=== PATIENT | female | born 1985 | race Caucasian/White ===

== ENCOUNTER 2019-02-10 14:02 | Emergency (ER) | payer MEDICAID, SELFPAY ==
[2019-02-10 14:19] VITALS: BP 129/89; PULSE 62; RESP 16; TEMP 36.8; O2SAT 97; BMI 21.5
[2019-02-10 14:31] VITALS: BP 129/89; PULSE 62; RESP 16; TEMP 36.8; O2SAT 97; BMI 21.5
--- NOTE | 2019-02-10 14:51 | HMH.EDUTC ---
[facility] [place] Disposition Clinical Impression: Jaw pain, non-TMJ Disposition: Home, Self-Care Condition on Discharge: Good Instructions: DI for Mouth Pain Additional Instructions: Avoid activities like what triggered this event. Take the ibuprofen for pain. Apply warm wet compresses to the affected area on your jaw three or four times per day for the next couple of days. Return or follow up with your regular doctor if this is not getting better in 48 hours. GO TO THE ER FOR ANY WORSENING SYMPTOMS Prescriptions: Ibuprofen [Ibuprofen 600mg Tablet] 600 mg PO Q6HP PRN #30 tab PRN Reason: Mild Pain Referrals: Stacey Tian PA [Primary Care Provider] - Time of Disposition: 15:00 Medical Decision Making - Medical Records Medical records reviewed: Yes: I reviewed the patient's medical records. - Vikram Inquiry Pt receiving controlled substance: No Vikram was queried for this patient: No Vital Signs: 02/10/19 14:19 02/10/19 14:31 02/10/19 15:05 Temperature 98.3 F 98.3 F 98.3 F Temperature Source Oral Oral Oral Pulse Rate 62 Pulse Rate [Left Radial] 62 62 Respiratory Rate 16 16 16 Blood Pressure 129/89 Blood Pressure [Right Arm] 129/89 129/89 Blood Pressure Mean [Right Arm] 102 102 Blood Pressure Source Automatic Cuff Blood Pressure Source [Right Arm] Automatic Cuff Automatic Cuff Blood Pressure Position Sitting Blood Pressure Position [Right Arm] Sitting Sitting 02 Sat by Pulse Oximetry 97 97 Oxygen Delivery Method Room Air Room Air Room Air [facility] [place] HPI - General Stated complaint: injured jaw Time Seen by Provider: 02/10/19 14:51 Mode of Arrival: Family Vehicle Source of Information: Patient Limitations: No Limitations Description of Symptoms (Recalled from Triage Doc. by RN): Pt states she was blowing bubbles with her mouth on her baby belly when she heard a pop in her right jaw and states today that it is really painful. Hx of TMJ HEENT Symptoms (Recalled from RN notes): Yes Resp Symptoms (Recalled from RN notes): No Skin Symptoms (Recalled from RN notes): No MS Symptoms (Recalled from RN notes): No Functional Status (Recalled from RN notes): N/A - Related Data Home Medications Medication Instructions Recorded Confirmed Albuterol Sulfate [Albuterol HFA 1 - 2 puffs IH Q4-6H PRN 02/10/19 02/10/19 Inhaler] Biotin 5,000 mcg SL DAILY 02/10/19 02/10/19 Levothyroxine Sodium 75 mcg PO DAILY 02/10/19 02/10/19 [Levothyroxine 75mcg (0.075mg) Tab] Norethindrone 0.35 mg PO DAILY 02/10/19 02/10/19 Prenat Vit Comb.10/Iron/FA/Dha 1 each PO DAILY 02/10/19 02/10/19 [Vitafol-Ob+Dha Combo Pack] Previous Rx's Medication Instructions Recorded Ibuprofen [Ibuprofen 600mg 600 mg PO Q6HP PRN #30 tab 02/10/19 Tablet] Allergies Allergy/AdvReac Type Severity Reaction Status Date / Time codeine Allergy Verified 02/10/19 14:33 Sulfa (Sulfonamide Allergy Verified 02/10/19 14:33 Antibiotics) - Worker's Comp Is this a Worker's Comp case?: No [facility] History - Hepatitis A Screen Drug use history?: No High risk sexual behaviors?: No History of sexually transmitted infection?: No Currently employed?: No Childcare worker?: No Do you have indoor plumbing?: Yes Do you have electricity?: Yes Attestation statement:: This patient has been screened for Hepatitis A risk factors. I have reviewed the patient's past medical history: Yes - Social History Alcohol Intake: never Occupational Status: other - Psychiatric History Expresses thoughts of harming self/others: None Suicide Plan Description: No Plan ROS Obtained: Yes All systems reviewed & no additional complaints - Constitutional Constitutional: Denies chills, Denies fever(s) - Eyes Eyes: Denies change in vision - ENT Ears, Nose, Mouth, and Throat: Reports as per HPI - Cardiovascular Cardiovascular: Denies chest pain - Respiratory Respiratory: No chest congestion, No cough Ph
--- NOTE | 2019-02-10 14:59 | ED_ITS ---
[facility] [place] Dis[place] Clinical Impression: Jaw pain, non-TMJ Disposition: Home, Self-Care Condition on Discharge: Good Instructions: DI for Mouth Pain Additional Instructions: Avoid activities like what triggered this event. Take the ibuprofen for pain. Apply warm wet compresses to the affected area on your jaw three or four times per day for the next couple of days. Return or follow up with your regular doctor if this is not getting better in 48 hours. GO TO THE ER FOR ANY WORSENING SYMPTOMS Prescriptions: Ibuprofen [Ibuprofen 600mg Tablet] 600 mg PO Q6HP PRN #30 tab PRN Reason: Mild Pain Referrals: Stacey Tian PA [Primary Care Provider] - Time of Disposition: 15:00 Medical Decision Making - Medical Records Medical records reviewed: Yes: I reviewed the patient's medical records. - Vikram Inquiry Pt receiving controlled substance: No Vikram was queried for this patient: No Vital Signs: 02/10/19 14:19 02/10/19 14:31 02/10/19 15:05 Temperature 98.3 F 98.3 F 98.3 F Temperature Source Oral Oral Oral Pulse Rate 62 Pulse Rate [Left Radial] 62 62 Respiratory Rate 16 16 16 Blood Pressure 129/89 Blood Pressure [Right Arm] 129/89 129/89 Blood Pressure Mean [Right Arm] 102 102 Blood Pressure Source Automatic Cuff Blood Pressure Source [Right Arm] Automatic Cuff Automatic Cuff Blood Pressure Position Sitting Blood Pressure Position [Right Arm] Sitting Sitting 02 Sat by Pulse Oximetry 97 97 Oxygen Delivery Method Room Air Room Air Room Air [facility] [place] HPI - General Stated complaint: injured jaw Time Seen by Provider: 02/10/19 14:51 Mode of Arrival: Family Vehicle Source of Information: Patient Limitations: No Limitations Description of Symptoms (Recalled from Triage Doc. by RN): Pt states she was blowing bubbles with her mouth on her baby belly when she heard a pop in her right jaw and states today that it is really painful. Hx of TMJ HEENT Symptoms (Recalled from RN notes): Yes Resp Symptoms (Recalled from RN notes): No Skin Symptoms (Recalled from RN notes): No MS Symptoms (Recalled from RN notes): No Functional Status (Recalled from RN notes): N/A - Related Data Home Medications Medication Instructions Recorded Confirmed Albuterol Sulfate [Albuterol HFA 1 - 2 puffs IH Q4-6H PRN 02/10/19 02/10/19 Inhaler] Biotin 5,000 mcg SL DAILY 02/10/19 02/10/19 Levothyroxine Sodium 75 mcg PO DAILY 02/10/19 02/10/19 [Levothyroxine 75mcg (0.075mg) Tab] Norethindrone 0.35 mg PO DAILY 02/10/19 02/10/19 Prenat Vit Comb.10/Iron/FA/Dha 1 each PO DAILY 02/10/19 02/10/19 [Vitafol-Ob+Dha Combo Pack] Previous Rx's Medication Instructions Recorded Ibuprofen [Ibuprofen 600mg 600 mg PO Q6HP PRN #30 tab 02/10/19 Tablet] Allergies Allergy/AdvReac Type Severity Reaction Status Date / Time codeine Allergy Verified 02/10/19 14:33 Sulfa (Sulfonamide Allergy Verified 02/10/19 14:33 Antibiotics) - Worker's Comp Is this a Worker's Comp case?: No [facility] History - Hepatitis A Screen Drug use history?: No High risk sexual behaviors?: N
[2019-02-10 15:05] VITALS: BP 129/89; PULSE 62; RESP 16; TEMP 36.8; O2SAT 97
== END 2019-02-10 15:07 | disposition home or self-care (01) ==
LOC: ER 14:11 → UTC 14:21
PROVIDERS: Emergency Provider Nurse Practitioner Family; PCP Physician Assistant
DX: R68.84 Jaw pain (principal)
CPT/HCPCS: 99201

== ENCOUNTER → 2021-06-18 09:43 | Outpatient (CLI) | payer MEDICAID, SELFPAY ==
[2021-06-18 10:14] LABS: Basophils # 0.1 K/mm3 (0-0.2); Basophils % 0.9 % (0.1-2.0); Eosinophils # 0.2 K/mm3 (0.0-0.4); Eosinophils % 3.3 % (0.1-12.0); Hematocrit 43.5 % (37.0-47.0); Hemoglobin 14.2 g/dL (12.2-16.2); Lymphocytes # 2.6 K/mm3 (0.7-4.5); Lymphocytes % 34.8 % (10-50); Mean Corpuscular HGB Conc 32.6 g/dL (31.8-35.4); Mean Corpuscular Hemoglobin 29.2 pg (27.0-31.2); Mean Corpuscular Volume 89.8 fl (81-99); Mean Platelet Volume 8.1 fl (7.4-10.4); Monocytes # 0.5 K/mm3 (0.1-1.0); Monocytes % 7.3 % (1.7-9.3); Neutrophils % 53.7 % (37.0-80.0); Platelet Count 275 K/mm3 (142-424); Red Blood Count 4.84 M/mm3 (4.20-5.40); Red Cell Distribution Width 12.7 % (11.5-17.5); White Blood Count 7.4 K/mm3 (4.8-10.8)
[2021-06-18 11:49] LABS: HCG Qualitative, Serum Negative (Negative)
[2021-06-18 16:41] LABS: Chloride 105 mmol/L (98-107); Sodium 141 mmol/L (136-145)
[2021-06-18 16:42] LABS: Potassium 3.8 mmoL/L (3.5-5.1)
[2021-06-18 16:44] LABS: Blood Urea Nitrogen 11 mg/dl (7-17); Estimated Glomerular Filt Rate 96 ml/min (>60); GFR (African American) 117 ML/MIN (>60)
[2021-06-18 16:45] LABS: Anion Gap 13.8 mEq/L (5-15); Calcium 9.1 mg/dl (8.4-10.2); Carbon Dioxide 26 mmol/L (22.0-30.0); Glucose 99 mg/dl (74-100)
== END ==
PROVIDERS: Visit Provider Nurse Practitioner Obstetrics & Gynecology
DX: Z01.818 Encounter for other preprocedural examination (principal); Z11.52 Encounter for screening for COVID-19; Z30.09 Encounter for other general counseling and advice on contraception
CPT/HCPCS: 36415; 80048; 84703; 85025; U0003

== ENCOUNTER 2021-06-20 06:04 | Day surgery (SDC) | payer MEDICAID, SELFPAY ==
[2021-06-17 09:18] VITALS: BMI 25.8
[2021-06-20] VITALS (9 sets, daily range): BP systolic 104–141; BP diastolic 63–83; PULSE 49–68; RESP 18–25; TEMP 36.2–37.3; O2SAT 98–100
--- NOTE | 2021-06-20 07:03 | P.PN_ITS ---
[facility] Anesthesia Checklist - Patient Identification Patient Identification: Arm Band - Structural Data Admitted From: Home Planned Operative Procedure/s: Lap. salpingectomy Consent for Planned Operative Procedure(s) Verified: Yes - NPO Status Verified Time NPO: 00:00 - Additional verifications Anesthesia Reactions: No Hx Blood Transfusions: No Blood Transfusion Reaction: No - Cardiovascular Assessment Heart Sounds: Murmur - Airway Assessment C-Spine Mobility Assessed: Yes TMJ Mobility Assessed: Yes Dentition: Good Dentition - Neurological Assessment Level of Consciousness: Awake Hx Seizures: No Numbness or tingling in extremities: No - Anesthesia Plan Anesthesia Risk discussed: Yes Anesthesia Plan: Verified ASA Class: II Anesthesia Type: General [facility] History I have reviewed the patient's past medical history: Yes Medical History: Denies:: Cancer, Diabetes Mellitus Type 1, Diabetes Mellitus Type 2, Internal Pacemaker, MRSA, Seizures *Have you ever received a pneumonia vaccine?: No *Have you received a flu vaccine this season?: No Other Medical History: Reports: Hypothyroidism, Other. Denies: Blood Transfusion Reaction Anesthesia experience/problems:: None Other Surgeries: Yes: No Previous Surgery. No: Pacemaker Amputation: No Fractures: No - *Social History Last grade of school completed: High school graduate Smoking Status: Never smoker Alcohol Intake: never Substance Use Type: marijuana Last Used Substance: days (ago) *Occupational Status:: unemployed Housing: house Household Members: family *Travel in the last 8 weeks: None Family Hx:: Cancer, Diabetes, Thyroid Disorder
--- NOTE | 2021-06-20 08:14 | HMH.OPNOTE ---
Date of procedure: 06/20/21 Pre-op Diagnosis:: Desire for sterilization Post-op Diagnosis:: Desire for sterilization Procedure performed:: Laparoscopic bilateral salpingectomy Surgeon:: Suhas Moreno MD RODENT EXTERMINATOR:: Yamil Ho Anesthesia: ALYSHAA Estimated blood loss (mL): 25 Clinical Note:: She is a 35-year-old lady who expressed desire for sterilization. The risks and benefits of surgery as well as the irreversibility of bilateral salpingectomy were discussed with the patient prior to surgery. Operative findings:: She had an anteverted somewhat bulky uterus. The tubes and ovaries appeared normal. The pelvis appeared normal. The upper abdomen appeared normal. I did get a chance to visualize her appendix and it appeared normal as well. Operative note:: She was taken to the operating room where general anesthesia was found be adequate. She was prepped and draped in normal sterile fashion in the semilithotomy position. A weighted speculum was placed in the vagina and the anterior lip of the cervix was grasped with a tenaculum. I then inserted a Isabella uterine manipulator into the cervical os. The balloon was then insufflated. I changed gloves and injected 10 cc of 0.5% ropivacaine around her umbilicus and made a small incision within the umbilicus. I inserted a Veress needle into the abdominal cavity. The peritoneal cavity was then insufflated with carbon dioxide gas to a pressure of 20 mmHg. I then inserted a 5 millimeter trocar under direct vision. I injected through and through the pubic hairline, made a small incision here and inserted an 8 mm trocar under direct vision. I identified the inferior epigastric artery on the left side, went lateral to these and injected through and through. I then placed a 5 mm trocar here under direct vision. The pelvis and upper abdomen were then inspected and the findings were as previously dictated. I grasped the right tube at the cornua and using harmonic scalpel on coagulation mode I cut through the tube. I then grasped the distal tube and using harmonic scalpel cut along the mesosalpinx. The tube was removed through 8 mm trocar site. This was similarly performed on the patient's left side. There was a small amount of bleeding on the right side and I tried cauterizing the area but it was unsuccessful. I elected to place a number of small surgical clips close to the cornua. Once again hemostasis was assured. The pelvis was then rinsed with saline. I then injected 30 cc of 0.5% ropivacaine into the pelvis. After assuring hemostasis the gas was let out of the abdomen and hemostasis was once again assured. The abdomen was then reinsufflated. The secondary trochars were removed under direct vision. The gas was let out her abdomen. The primary trocar was then removed. The 8 mm trocar site was closed deeply with 2-0 Vicryl suture followed by subcuticular 4-0 Monocryl suture. The 5 mm trocar sites were closed with subcuticular 4-0 Monocryl. Sterile dressings were applied. The patient tolerated the procedure well and was taken to the recovery room in excellent condition. All sponge instrument and needle counts were correct. The estimated blood loss was less than 25 cc. Condition: stable Disposition: PACU Specimens:: Bilateral fallopian tubes Complications:: None
--- NOTE | 2021-06-20 08:22 | HMH.ANESI ---
[facility] Anesthesia Record Part I Intake, IV Amount: 750 Estimated blood loss (mL): 20 Urine output (mL): 0 Blood Pressure: 141/83 SaO2: 100 Pulse Rate: 54 Respiratory Rate: 25 Temperature: 99.2 F Patient is:: Drowsy, Oral/Nasal airway Stable to PACU at:: 08:21
--- NOTE | 2021-06-20 10:58 | SUR.PHASEI ---
0821-pt to pacu via stretcher having a Lap Tubal per . Report received from Bri TSAI & Colten CASH. Pt is sleeping comfortably with oral airway in place. 3 abdominal dressings noted. All C/D/I. Kelley pad in place. Warm blankets applied for comfort measures. Scopolomine patch noted behind right ear. VSS. 0830- Oral airway removed. Pt awake but sleepy. VSS. 0835-Pt given ice chips. Tolerated well. 0840- pt c/o burning in vaginal area and urge to void. Offered bed saucedo. Pt refused. VSS. 0851- pt taken to post op via stretcher. Report given to L.King TSAI. VSS.
--- NOTE | 2021-06-23 14:16 | P.PN_ITS ---
[facility] Anesthesia Record Part II Discharge Time: 08:51 Destination: Surgical Day Care (OP Surgery) PACU nurse assessment reviewed?: Yes Patient Condition:: Good Anesthesia Complications:: None Swallowing reflex intact?: Yes Cyanosis?: No Blood Pressure: 109/69 Pulse Rate: 68 Temperature: 98.2 F Mental Status: Alert & Oriented Pain level:: 0 Nausea and/or vomitting:: None Intake, IV Amount: 0
[2021-06-23 14:17] VITALS: BP 109/69; PULSE 68; TEMP 36.8
== END 2021-06-20 09:30 | disposition home or self-care (01) ==
LOC: OR 06:06
PROVIDERS: PCP Nurse Practitioner Obstetrics & Gynecology; Visit Provider Nurse Practitioner Obstetrics & Gynecology
PROC: (CPT 58661; principal; 2021-06-20 07:30)
DX: Z30.2 Encounter for sterilization (principal); Z88.2 Allergy status to sulfonamides; Z88.6 Allergy status to analgesic agent
CPT/HCPCS: 58661; 96374; J2405

== ENCOUNTER 2021-06-20 10:11 | Emergency (ER) | payer MEDICAID, SELFPAY ==
--- NOTE | 2021-06-20 10:10 | ECG_ITS ---
APPROVED REPORT Exam: Resting ECG HR:50 bpm ECG Measurements Heart Rate 50 AXES NJ 160 P 68 QRSd 90 QRS 78 QT 454 T 84 QTc 413 Conclusion Sinus bradycardia Otherwise normal ECG Electronically signed by : Jorge A Murillo MD 06/22/2021 16:10:47
[2021-06-20 10:12] VITALS: BP 119/69; PULSE 52; RESP 20; TEMP 36.7; O2SAT 100; BMI 25.8
--- NOTE | 2021-06-20 10:18 | HMH.EDGENADL ---
ED Disposition Clinical Impression: Surgical pneumoperitoneum Chest pain Qualifiers: Chest pain type: chest pain on breathing Qualified Code(s): R07.1 - Chest pain on breathing Disposition: Home, Self-Care Condition on Discharge: Good Additional Instructions: Take oxycodone that was prescribed for pain, take Zofran along with food to prevent nausea. Additional instructions for CHEST PAIN: See your physician as soon as possible for further evaluation. Return immediately if worsening chest pain, vomiting, shortness of breath, fever, coughing of blood. Prescriptions: Ondansetron [Zofran 4mg ODT] 4 mg PO TIDP PRN #10 tab PRN Reason: Nausea And Vomiting Transmission Status: Received by [id number] Referrals: Provider,Referral, MD [Primary Care Provider] - - Critical Care Critical Care Time: No Attestation: On , the high probability of a clinically significant, sudden or life threatening deterioration of the following system(s) required my full and direct attention, intervention and personal management. The time I documented below is in addition to time spent performing reported procedures but includes the following listed in this critical care notation. Medical Decision Making - Medical Records Medical records reviewed: Yes: I reviewed the patient's medical records. MR Comment: Reviewed tubal ligation operative report from today. - Vikram Inquiry Pt receiving controlled substance: Yes Vikram was queried for this patient: Yes Risks and benefits of using a controlled substance: were not discussed with pt by me Vital Signs: 06/20/21 10:12 06/20/21 10:30 06/20/21 10:40 Temperature 98.1 F Temperature Source Oral Pulse Rate 49 L 50 L Pulse Rate [Right Radial] 52 L Respiratory Rate 20 16 14 Blood Pressure 103/67 L 104/59 L Blood Pressure [Right Arm] 119/69 Blood Pressure Mean 79 74 Blood Pressure Mean [Right Arm] 85 Blood Pressure Source Blood Pressure Source [Right Arm] Automatic Cuff Blood Pressure Position Blood Pressure Position [Right Arm] Sitting 02 Sat by Pulse Oximetry 100 98 98 Oxygen Delivery Method Room Air Room Air Room Air 06/20/21 12:45 Temperature 98.1 F Temperature Source Oral Pulse Rate 46 L Pulse Rate [Right Radial] Respiratory Rate 16 Blood Pressure 104/61 L Blood Pressure [Right Arm] Blood Pressure Mean Blood Pressure Mean [Right Arm] Blood Pressure Source Automatic Cuff Blood Pressure Source [Right Arm] Blood Pressure Position Sitting Blood Pressure Position [Right Arm] 02 Sat by Pulse Oximetry Oxygen Delivery Method Room Air - Lab Data Lab Results 06/20/21 10:16: WBC 10.8 D, RBC 4.57, Hgb 13.4, Hct 41.0, MCV 89.7, MCH 29.4, MCHC 32.8, RDW 12.2, Plt Count 268, MPV 7.7, Neut % (Auto) 90.0 H, Lymph % (Auto) 7.5 L, [place] % (Auto) 1.9, Eos % (Auto) 0.5, Baso % (Auto) 0.2, Neut # (Auto) 9.7 H, Lymph # (Auto) 0.8, [place] # (Auto) 0.2, Eos # (Auto) 0.1, Baso # (Auto) 0.0, Total Counted 100, Neutrophils % (Manual) 84 H, Lymphocytes % (Manual) 12, Monocytes % (Manual) 3, Eosinophils % (Manual) 1, Platelet Estimate Normal, RBC Morphology Normal 06/20/21 10:16: Sodium 141, Potassium 4.2, Chloride 107, Carbon Dioxide 25, Anion Gap 13.2, BUN 11, Creatinine 0.60, Estimated Creat Clear 172, Estimated GFR 115, Est GFR ( Amer) 139, Glucose 120 H, Calcium 8.5, Total Bilirubin 0.2, Direct Bilirubin 0.2, Conjugated Bilirubin 0.0, Indirect Bilirubin 0.0, Unconjugated Bilirubin 0.0, AST 22, ALT 12, Alkaline Phosphatase 64, Total Protein 7.0, Albumin 4.1, Lipase 56 06/20/21 10:16: Troponin I < 0.01 Result diagrams: 06/20/21 10:16 06/20/21 10:16 Orders (Tests/Meds): ED MEDICATIONS Discontinued Medications Generic Name Dose Route Start Last Admin Trade Name Freq PRN Reason Stop Dose Admin Hydromorphone HCl 1 mg 06/20/21 10:26 06/20/21 10:32 Hydromorphone 2mg/Ml Syringe IV 06/20/21 10:27 1 mg ONCE ONE Administration Iopamidol
--- NOTE | 2021-06-20 10:26 | XR_ITS ---
PROCEDURE: XR CHEST PORTABLE CLINICAL HISTORY: chest pain COMPARISON: CR CXR2V XR chest 2V from 02/22/2019 FINDINGS: The cardiomediastinal silhouette and pulmonary vascularity are within normal limits. No lobar consolidation or collapse. There is a vague area of increased density in the right midlung laterally measuring 14 mm. This may very well be due to summation artifact from the overlying scapula. A sclerotic lesion of the scapula is a consideration as well. No acute bony abnormalities. IMPRESSION: No definite acute finding. 14 mm density right midlung laterally which could be due to summation artifact from the scapula versus a sclerotic scapular lesion or overlying pulmonary nodule. Upright PA and lateral chest may provide further evaluation clinically warranted Dictated by: Abran Clayton MD 06/20/2021 11:01 Abran Clayton MD in [facility] 06/20/2021 11:01
[2021-06-20 10:30] VITALS: BP 103/67; PULSE 49; RESP 16; O2SAT 98
[2021-06-20 10:34] LABS: Basophils % 0.2 % (0.1-2.0); Eosinophils # 0.1 K/mm3 (0.0-0.4); Eosinophils % 0.5 % (0.1-12.0); Hemoglobin 13.4 g/dL (12.2-16.2); Lymphocytes # 0.8 K/mm3 (0.7-4.5); Lymphocytes % 7.5 % (10-50); Mean Corpuscular HGB Conc 32.8 g/dL (31.8-35.4); Mean Corpuscular Hemoglobin 29.4 pg (27.0-31.2); Mean Corpuscular Volume 89.7 fl (81-99); Mean Platelet Volume 7.7 fl (7.4-10.4); Monocytes # 0.2 K/mm3 (0.1-1.0); Monocytes % 1.9 % (1.7-9.3); Neutrophils # 9.7 K/mm3 (1.8-7.8); Platelet Count 268 K/mm3 (142-424); Red Blood Count 4.57 M/mm3 (4.20-5.40); Red Cell Distribution Width 12.2 % (11.5-17.5); White Blood Count 10.8 K/mm3 (4.8-10.8)
[2021-06-20 10:35] LABS: Chloride 107 mmol/L (98-107); Potassium 4.2 mmoL/L (3.5-5.1); Sodium 141 mmol/L (136-145)
[2021-06-20 10:36] LABS: MANUAL DIFFERENTIAL MANUAL DIFFERENTIAL (MANUAL DIFF)
[2021-06-20 10:38] LABS: Alanine Aminotransferase 12 U/L (12-78); Alkaline Phosphatase 64 U/L (38-126); Anion Gap 13.2 mEq/L (5-15); Aspartate Amino Transferase 22 U/L (14-36); Bilirubin,Direct 0.2 mg/dl (0.0-0.4); Bilirubin,Total 0.2 mg/dl (0.2-1.3); Blood Urea Nitrogen 11 mg/dl (7-17); Calcium 8.5 mg/dl (8.4-10.2); Carbon Dioxide 25 mmol/L (22.0-30.0); Creatinine Clearance Estimated 172 mL/min (50-200); Estimated Glomerular Filt Rate 115 ml/min (>60); GFR (African American) 139 ML/MIN (>60); Glucose 120 mg/dl (74-100)
[2021-06-20 10:39] LABS: Albumin Level 4.1 g/dl (3.5-5.0); Lipase 56 U/L (23-300)
[2021-06-20 10:40] VITALS: BP 104/59; PULSE 50; RESP 14; O2SAT 98
[2021-06-20 10:42] LABS: Eosinophils % 1 % (0-3); Lymphocytes % 12 % (10-50); Monocytes % 3 % (2-9); Neutrophils % 84 % (42-76); Platelet Estimate Normal; RBC Morphology Normal; Total Cells Counted 100
--- NOTE | 2021-06-20 10:52 | CT_ITS ---
PROCEDURE: CT ANGIO CHEST PE PROTOCOL CLINCIAL INDICATION: chest pain, recent surgery COMPARISON: No exams were available for comparison TECHNIQUE: IV Contrast: 70ML Isovue 370 Axial images obtained with sagittal and coronal reformats. All CT scans at the facility use one or more dose reduction, viz: automated exposure control, ma/kV adjustment per patient size (including targeted exams where dose is matched to indication, i.e. head), or iterative reconstruction technique. FINDINGS: HEART AND MEDIASTINAL STRUCTURES: No evidence of pulmonary embolus, aortic aneurysm, or aortic dissection.. No mediastinal or hilar mass or adenopathy. Soft tissue density is present in the anterior mediastinum consistent with thymic tissue. LUNGS AND PLEURAL SPACES: There are some small nodes inferior to the right inferior pulmonary vein. These may be reactive in nature. There are atelectatic changes in the lung bases posteriorly on both sides. No effusions. BONY STRUCTURES: No acute bony abnormalities apparent. UPPER ABDOMEN: Pneumoperitoneum is present. The patient has had recent bilateral tubal ligation ADDITIONAL FINDINGS: No other significant abnormalities. IMPRESSION: No evidence of pulmonary embolus, aortic aneurysm, or aortic dissection.. Pneumoperitoneum which may be postsurgical in nature. Mild bibasilar atelectasis. Dictated by: Abran Clayton MD 06/20/2021 11:20 Abran Clayton MD in [facility] 06/20/2021 11:20
--- NOTE | 2021-06-20 11:00 | PC.NURSE ---
pt to CT
--- NOTE | 2021-06-20 11:13 | CT_ITS ---
PROCEDURE: CT ABDOMEN PELVIS W CON CLINICAL INDICATION: FREE AIR SEEN ON CTA CHEST. COMPARISON: No exams were available for comparison TECHNIQUE: IV Contrast: 75ML Isovue 370 Oral Contrast None Axial images obtained with sagittal and coronal reformats. All CT scans at the facility use one or more dose reduction, viz: automated exposure control, ma/kV adjustment per patient size (including targeted exams where dose is matched to indication, i.e. head), or iterative reconstruction technique. FINDINGS: LOWER THORAX: Bibasilar atelectasis ABDOMEN & PELVIS: Pneumoperitoneum is present with a small amount of free air noted anteriorly in the pelvic region and along the anterior aspect of the liver and subdiaphragmatic area. 7 mm hypodensity left hepatic lobe segment 4 a and 2 smaller hypodensities in the liver both along the right and left aspect of the fissure for the ligamentum teres which may be due to cysts or small hemangiomas. The remaining liver has an unremarkable appearance. The gallbladder, spleen, adrenal glands, pancreas, and kidneys have an unremarkable appearance. No intestinal obstruction. Unremarkable appendix. There is a mild amount of retained colonic feces. There is mild gaseous distention of the rectum. There is an oval hypodensity in the right perineal region measuring 14 by 8 mm consistent with a small cyst. Tubal ligation clips are present on the right. The small amount of fluid is present in the right adnexal area. Small bilateral ovarian follicles are present. IMPRESSION: Pneumoperitoneum which may be postsurgical in nature. Postsurgical changes of the pelvis with surgical clips in the right adnexal region from recent tubal ligation with a small amount fluid in the right adnexal region. Nonspecific hepatic hypodensities which may be cyst and/or small hemangiomas. Dictated by: Abran Clayton MD 06/20/2021 11:43 Abran Clayton MD in [facility] 06/20/2021 11:43
[2021-06-20 11:35] LABS: Troponin I < 0.01 ng/ml (0.00-0.034)
[2021-06-20 12:45] VITALS: BP 104/61; PULSE 46; RESP 16; TEMP 36.7; O2SAT 96
== END 2021-06-20 12:35 | disposition home or self-care (01) ==
PROVIDERS: Emergency Provider Emergency Medicine
DX: K66.8 Other specified disorders of peritoneum (principal); R07.2 Precordial pain; E03.9 Hypothyroidism, unspecified; F12.10 Cannabis abuse, uncomplicated
CPT/HCPCS: 71045; 71275; 74177; 80048; 80076; 83690; 84484; 85007; 85025; 93005; 99283; J2405; Q9967

== ENCOUNTER 2022-02-27 12:12 | Emergency (ER) | payer MEDICAID, SELFPAY ==
[2022-02-27 12:12] VITALS: BP 131/86; PULSE 80; RESP 20; TEMP 36.6; O2SAT 98; BMI 23.7
[2022-02-27 12:31] LABS: Microscopic, Urine URINE MICROSCOPIC (MICROSCOPIC)
[2022-02-27 12:32] LABS: Appearance,Urine CLEAR (Clear); Bilirubin,Urine Negative (Negative); Blood, Urine Negative (Negative); Color,Urine YELLOW (Yellow); Glucose,Urine (UA) Negative (Negative); Ketones,Urine Negative (Negative); Leukocyte Esterase,Urine Negative (Negative); Nitrate,Urine Negative (Negative); Protein,Urine Negative (Negative); Specific Gravity, Urine <= 1.005 (1.005-1.030); Urobilinogen,Urine 0.2 EU/dl (0.2)
[2022-02-27 12:35] LABS: Urine Pregnancy, HCG Qual. Negative (Negative)
[2022-02-27 12:46] LABS: Bacteria,Urine Trace /lpf
[2022-02-27 12:48] LABS: Basophils # 0.2 K/mm3 (0-0.2); Basophils % 2.5 % (0.1-2.0); Eosinophils # 0.2 K/mm3 (0.0-0.4); Eosinophils % 3.1 % (0.1-12.0); Hematocrit 42.5 % (37.0-47.0); Hemoglobin 14.3 g/dL (12.2-16.2); Lymphocytes % 25.5 % (10-50); Mean Corpuscular HGB Conc 33.5 g/dL (31.8-35.4); Mean Corpuscular Hemoglobin 29.1 pg (27.0-31.2); Mean Corpuscular Volume 86.7 fl (81-99); Mean Platelet Volume 8.2 fl (7.4-10.4); Monocytes # 0.5 K/mm3 (0.1-1.0); Monocytes % 6.2 % (1.7-9.3); Neutrophils # 4.8 K/mm3 (1.8-7.8); Neutrophils % 62.8 % (37.0-80.0); Platelet Count 311 K/mm3 (142-424); Red Cell Distribution Width 13.2 % (11.5-17.5); White Blood Count 7.7 K/mm3 (4.8-10.8)
--- NOTE | 2022-02-27 12:51 | CT_ITS ---
FINAL REPORT CLINICAL HISTORY: R inguinal pain, h/o hernia, r/o incarceration COMPARISON: June 20, 2021 FINDINGS: Axial CT images of the abdomen and pelvis were obtained without intravenous contrast. Oral contrast was administered. Coronal reformatted images were also obtained.This study was performed with techniques to keep radiation doses as low as reasonably achievable (ALARA). Individualized dose reduction techniques using automated exposure control or adjustment of mA and/or kV according to the patient's size were employed. Abdomen: The lung bases are clear. There is no evidence of renal stone or hydronephrosis. The gallbladder is present. There is an 8 mm low-attenuation focus in the anterior liver dome, stable from the prior exam, that could represent a cyst or hemangioma. The spleen and pancreas have an unremarkable, unenhanced appearance. No inflammatory process is identified. Pelvis: Images of the pelvis reveal no evidence of ureteral dilation or ureteral stone. The appendix is normal. There is a presumed fluid collection in the anterior right lower pelvis measuring 21 mm that previously measured 29 mm. Persistent soft tissue in the right inguinal canal extends inferior towards the right labia and is stable. This may represent postoperative change or a residual hernia in the region of the right canal of Nuck. A 15 mm fluid collection in the right introitus may represent a Bartholin's gland cyst and is stable. IMPRESSION: Persistent soft tissue in the right inguinal canal extending inferiorly is stable. This may represent postoperative change or residual hernia in the region of the right canal of Nuck. Improved presumed fluid collection in the anterior right lower pelvis. Reviewed, Interpreted and Dictated by Venkat Morton III, MD Transcribed by Marcus Pacheco Authenticated by Venkat Morton III, MD on 02/27/2022 03:06:39 PM [facility]
--- NOTE | 2022-02-27 12:52 | PC.NURSE ---
Notified rad that pt has finished PO contrast
--- NOTE | 2022-02-27 12:52 | HMH.EDGENADL ---
ED Disposition Clinical Impression: Inguinal hernia Qualifiers: Obstruction and gangrene presence: without obstruction or gangrene Laterality: unilateral Recurrence: not specified as recurrent Qualified Code(s): K40.90 - Unilateral inguinal hernia, without obstruction or gangrene, not specified as recurrent Disposition: Home, Self-Care Condition on Discharge: Good Additional Instructions: Tramadol as needed for pain. Follow-up with Dr. Moreno or Dr. Anderson in the office on Wednesday, call first thing Wednesday morning to make appointment to be seen. Return to the emergency department if worsening pain or if vomiting. Prescriptions: Tramadol HCl [Tramadol 50mg Tab] 50 mg PO Q6HP PRN #12 tab PRN Reason: Moderate Pain Transmission Status: Received by [id number] Referrals: Bryan Owusu [Primary Care Provider] - - Critical Care Critical Care Time: No Attestation: On 02/27/22, the high probability of a clinically significant, sudden or life threatening deterioration of the following system(s) required my full and direct attention, intervention and personal management. The time I documented below is in addition to time spent performing reported procedures but includes the following listed in this critical care notation. Medical Decision Making - Vikram Inquiry Pt receiving controlled substance: Yes Vikram was queried for this patient: Yes Risks and benefits of using a controlled substance: were not discussed with pt by me Vital Signs: 02/27/22 12:12 02/27/22 14:46 Temperature 98 F Temperature Source Oral Pulse Rate 59 L Pulse Rate [Radial] 80 Respiratory Rate 20 16 Blood Pressure 115/57 L Blood Pressure [Right Arm] 131/86 Blood Pressure Mean 83 Blood Pressure Mean [Right Arm] 101 Blood Pressure Position [Right Arm] Sitting 02 Sat by Pulse Oximetry 98 98 Oxygen Delivery Method Room Air Room Air - Lab Data Lab Results 02/27/22 12:17: Urine Color Yellow, Urine Appearance Clear, Urine pH 7.0, Ur Specific [place] <= 1.005, Urine Protein Negative, Urine Glucose (UA) Negative, Urine Ketones Negative, Urine Blood Negative, Urine Nitrate Negative, Urine Bilirubin Negative, Urine Urobilinogen 0.2, Ur Leukocyte Esterase Negative, Urine RBC None, Urine WBC None, Ur Squamous Epith Cells 3-5, Urine Bacteria Trace 02/27/22 12:17: Urine HCG, Qual Negative 02/27/22 12:35: WBC 7.7, RBC 4.90, Hgb 14.3, Hct 42.5, MCV 86.7, MCH 29.1, MCHC 33.5, RDW 13.2, Plt Count 311, MPV 8.2, Neut % (Auto) 62.8, Lymph % (Auto) 25.5, [place] % (Auto) 6.2, Eos % (Auto) 3.1, Baso % (Auto) 2.5 H, Neut # (Auto) 4.8, Lymph # (Auto) 2.0, [place]ier # (Auto) 0.5, Eos # (Auto) 0.2, Baso # (Auto) 0.2 02/27/22 12:35: Sodium 139, Potassium 4.1, Chloride 106, Carbon Dioxide 25, Anion Gap 12.1, BUN 9, Creatinine 0.60, Estimated Creat Clear 161, Estimated GFR 114, Est GFR ( Amer) 138, Glucose 108 H, Calcium 9.4, Total Bilirubin 0.3, AST 25, ALT 19, Alkaline Phosphatase 52, Total Protein 7.2, Albumin 4.3, Globulin 2.9, Albumin/Globulin Ratio 1.5 Result diagrams: 02/27/22 12:35 02/27/22 12:35 Orders (Tests/Meds): ED MEDICATIONS Discontinued Medications Generic Name Dose Route Start Last Admin Trade Name Freq PRN Reason Stop Dose Admin Diatrizoate Meglum/Diatrizoate Sod 30 ml 02/27/22 12:50 02/27/22 12:51 Diatrizoate Pina 66% & Diatrizoate Na 10% 30ml Udc PO 02/27/22 12:51 30 ml ONCE ONE Administration Morphine Sulfate 4 mg 02/27/22 13:14 Morphine 4mg/Ml Syringe IV 02/27/22 13:15 ONCE ONE Ondansetron HCl 4 mg 02/27/22 13:14 Ondansetron 4mg/2ml Vial IV 02/27/22 13:15 ONCE ONE - CT Data CT Scan: Abdomen, Pelvis Time Received: 15:[address] Reviewed: Yes: I have viewed the radiologist's interpretation Findings Narrative: Procedure(s): CT abdomen pelvis wo con Accession Number(s): [id number] cc: Venkat Morton MD; Wilfredo Brooks MD; Schack,Bryan ~ FINAL REPORT CLINICAL HISTORY: R
[2022-02-27 12:54] LABS: Chloride 106 mmol/L (98-107); Potassium 4.1 mmoL/L (3.5-5.1); Sodium 139 mmol/L (136-145)
[2022-02-27 12:56] LABS: Alanine Aminotransferase 19 U/L (12-78); Aspartate Amino Transferase 25 U/L (14-36); Blood Urea Nitrogen 9 mg/dl (7-17); Creatinine Clearance Estimated 161 mL/min (50-200); Estimated Glomerular Filt Rate 114 ml/min (>60); GFR (African American) 138 ML/MIN (>60)
[2022-02-27 12:57] LABS: Albumin Level 4.3 g/dl (3.5-5.0); Albumin/Globulin Ratio 1.5 (1.1-1.8); Alkaline Phosphatase 52 U/L (38-126); Anion Gap 12.1 mEq/L (5-15); Bilirubin,Total 0.3 mg/dl (0.2-1.3); Calcium 9.4 mg/dl (8.4-10.2); Carbon Dioxide 25 mmol/L (22.0-30.0); Globulin 2.9 g/dL (1.3-3.2); Glucose 108 mg/dl (74-100); Total Protein,Serum 7.2 g/dl (6.3-8.2)
--- NOTE | 2022-02-27 13:01 | US_ITS ---
FINAL REPORT CLINICAL HISTORY: h/o hernia in canal of nuck FINDINGS: Limited sonographic imaging of the right inguinal region was obtained. Tubular soft tissue is seen in the right inguinal region worrisome for hernia. IMPRESSION: Tubular soft tissue in the right inguinal region worrisome for inguinal hernia. Reviewed, Interpreted and Dictated by Venkat Morton III, MD Transcribed by Lynn Grant Authenticated by Venkat Morton III, MD on 02/27/2022 02:39:35 PM [facility]
--- NOTE | 2022-02-27 13:20 | PC.NURSE ---
pt going to US
--- NOTE | 2022-02-27 13:49 | PC.NURSE ---
pt return from ultrasound radio station engineer spoke with EDUARDO EMEYR when she brought pt back
[2022-02-27 14:46] VITALS: BP 115/57; PULSE 59; RESP 16; O2SAT 98
--- NOTE | 2022-02-27 15:08 | PC.NURSE ---
pt ambulated to restroom and back to room with no difficulty
--- NOTE | 2022-02-27 15:48 | PC.NURSE ---
call placed to simulation analyst ob
--- NOTE | 2022-02-27 16:03 | PC.NURSE ---
EDUARDO EMERY speaking with Dr. Anderson (front end mechanic senior communications engineer)
--- NOTE | 2022-02-27 16:06 | PC.NURSE ---
ER at discussing test results and POC
[2022-02-27 16:33] VITALS: BP 100/75; PULSE 82; RESP 20; TEMP 36.7; O2SAT 99
== END 2022-02-27 16:35 | disposition home or self-care (01) ==
PROVIDERS: Emergency Provider Emergency Medicine; PCP Pediatrics
DX: K40.90 Unilateral inguinal hernia, without obstruction or gangrene, not specified as recurrent (principal); Z88.2 Allergy status to sulfonamides; Z88.5 Allergy status to narcotic agent
CPT/HCPCS: 74176; 76856; 80053; 81001; 81025; 85025; 99284

== ENCOUNTER 2023-01-06 23:44 | Emergency (ER) | payer MEDICAID, SELFPAY ==
[2023-01-07 00:03] VITALS: BP 116/63; PULSE 58; RESP 22; TEMP 36.6; O2SAT 100; BMI 25.1
--- NOTE | 2023-01-07 00:04 | CT_ITS ---
PROCEDURE INFORMATION: Exam: CT Abdomen And Pelvis With Contrast Exam date and time: 01/07/2023 12:24 AM Age: 37 years old Clinical indication: Prior surgery; Surgery date: Post-operative (0-2 days); Surgery type: Right inguinal hernia repair; Patient HX: Post op, C/O abdominal pain; Additional info: Surgery complications TECHNIQUE: Imaging protocol: Computed tomography of the abdomen and pelvis with contrast. Radiation optimization: All CT scans at this facility use at least one of these dose optimization techniques: automated exposure control; mA and/or kV adjustment per patient size (includes targeted exams where dose is matched to clinical indication); or iterative reconstruction. Contrast material: ISOVUE; Contrast volume: 75 ml; Contrast route: IV; REPORTING DATA: Count of CT and Cardiac NM exams in prior 12 months: This patient has received [address] and 0 known cardiac nuclear medicine studies in the 12 months prior to the current study. COMPARISON: CT ABDOMEN PELVIS WO CON 02/27/2022 2:16 PM FINDINGS: Liver: Normal. No mass. Gallbladder and bile ducts: Normal. No calcified stones. No ductal dilation. Pancreas: Normal. No ductal dilation. Spleen: Normal. No splenomegaly. Adrenal glands: Normal. No mass. Kidneys and ureters: Normal. No hydronephrosis. Stomach and bowel: Moderate fecal retention noted throughout the colon. No evidence of bowel obstruction. Appendix: No evidence of appendicitis. Intraperitoneal space: There is mild scattered pneumoperitoneum and small amount of free fluid in the pelvis, presumably due to given history of recent surgery. Vasculature: Unremarkable. No abdominal aortic aneurysm. Lymph nodes: Unremarkable. No enlarged lymph nodes. Urinary bladder: Unremarkable as visualized. Reproductive: Unremarkable as visualized. Bones/joints: Unremarkable. No acute fracture. Soft tissues: Elongated area of soft tissue attenuation in the right inguinal canal measures approximally 8 cm in length and has an appearance suggesting postoperative hematoma. Small amount of soft tissue gas noted in the anterior abdominopelvic wall compatible with recent surgery. Other findings: No loculated fluid collection seen. IMPRESSION: 1. Findings compatible with given history of recent surgery including small hematoma in the right inguinal canal as well as mild pneumoperitoneum and free fluid in the abdomen and pelvis. No loculated fluid collections 2. Moderate fecal retention throughout the colon. No evidence of bowel obstruction.
[2023-01-07 00:12] LABS: Chloride 103 mmol/L (98-107)
[2023-01-07 00:13] LABS: Potassium 4.4 mmoL/L (3.5-5.1); Sodium 138 mmol/L (136-145)
[2023-01-07 00:15] LABS: Alanine Aminotransferase 29 U/L (12-78); Aspartate Amino Transferase 34 U/L (14-36); Basophils # 0.1 K/mm3 (0-0.2); Basophils % 0.4 % (0.1-2.0); Blood Urea Nitrogen 10 mg/dl (7-17); Creatinine Clearance Estimated 164 mL/min (50-200); Eosinophils % 0.2 % (0.1-12.0); Estimated Glomerular Filt Rate 114 ml/min (>60); GFR (African American) 138 ML/MIN (>60); Hematocrit 43.2 % (37.0-47.0); Hemoglobin 13.7 g/dL (12.2-16.2); Lymphocytes # 1.3 K/mm3 (0.7-4.5); Lymphocytes % 9.5 % (10-50); Mean Corpuscular HGB Conc 31.6 g/dL (31.8-35.4); Mean Corpuscular Hemoglobin 28.2 pg (27.0-31.2); Mean Platelet Volume 8.1 fl (7.4-10.4); Monocytes # 0.8 K/mm3 (0.1-1.0); Monocytes % 5.5 % (1.7-9.3); Neutrophils # 11.8 K/mm3 (1.8-7.8); Neutrophils % 84.3 % (37.0-80.0); Platelet Count 290 K/mm3 (142-424); Red Blood Count 4.86 M/mm3 (4.20-5.40)
[2023-01-07 00:16] LABS: Albumin Level 5.1 g/dl (3.5-5.0); Albumin/Globulin Ratio 1.5 (1.1-1.8); Alkaline Phosphatase 48 U/L (38-126); Anion Gap 12.4 mEq/L (5-15); Bilirubin,Total 0.7 mg/dl (0.2-1.3); Calcium 9.3 mg/dl (8.4-10.2); Carbon Dioxide 27 mmol/L (22.0-30.0); Globulin 3.3 g/dL (1.3-3.2); Glucose 115 mg/dl (74-100); Total Protein,Serum 8.4 g/dl (6.3-8.2)
[2023-01-07 01:30] VITALS: BP 103/56; PULSE 51; RESP 18; O2SAT 95
[2023-01-07 02:00] VITALS: BP 108/68; PULSE 52; RESP 20; O2SAT 99
--- NOTE | 2023-01-07 02:16 | HMH.EDGENADL ---
Discharge Plan Disposition Patient Disposition: Home, Self-Care Chief Complaint: PAIN Prescriptions Prescriptions: No Action levothyroxine 88 mcg tablet 88 mcg PO albuterol sulfate 18 GM HFA aerosol inhaler 1 - 2 puffs IH Q4-6H PRN (Reason: Shortness Of Breath Or Wheezing) Referrals Follow up/Referrals: Bryan Owusu [Primary Care Provider] - See instructions Clinical Impressions Clinical Impression: Postoperative abdominal pain Instructions Patient Instructions: DI for Acute Pain -- Adult Discharge ED Provider: Gallito (ED)Kadeem General Adult HPI General Chief complaint: PAIN Stated complaint: Hernia surgery 01/06/23 at now severe pain Time Seen by Provider: 01/07/23 02:16 Mode of Arrival: Wheelchair Source of Information: Patient and Medical Record Limitations: post op Description of Symptoms (Recalled from ER Triage Doc. by RN): Pt had inguinal hernia repair and lipoma removed at this morning. Pt states this evening when she got up from couch she experienced excruciating pain in her abdominal wall states it feels like it is pressing on her lungs. History of Present Illness HPI narrative: pt with abd pain increased tonight with recent surg at - Onset (ago): hour(s) Location: abdomen Severity: severe Quality: sharp Consistency: intermittent Related Data Home Medications Medication Instructions Recorded Confirmed albuterol sulfate 90 mcg/actuation 1 - 2 puffs inhalation Q4-6H PRN 02/10/19 03/18/22 aerosol inhaler Shortness Of Breath Or Wheezing levothyroxine 88 mcg tablet 88 mcg PO 03/02/22 03/18/22 Allergies Allergy/AdvReac Type Severity Reaction Status Date / Time codeine Allergy Verified 03/18/22 13:13 Sulfa (Sulfonamide Allergy Verified 03/18/22 13:13 Antibiotics) [facility] Disclaimer: The information contained in this section may have been updated after the patient was seen, as this information can be updated by other users. Social History Smoking Status: Never smoker second hand exposure: Yes alcohol intake: never substance use type: marijuana current occupational status: unemployed Travel in the last 8 weeks: None household members: family housing: house current occupational exposures/hazards: No caffeine: Yes ROS Obtained: Yes All systems reviewed & no additional complaints except as documented Physical Exam General General appearance: alert Head Head exam: normocephalic Eye Eye exam: Present PERRL and EOMI ENT ENT exam: Present mucous membranes moist Neck Neck exam: Present trachea midline Respiratory Respiratory exam: Absent respiratory distress Cardiovascular Cardiovascular exam: Present regular rate Abdominal Exam Abdominal exam: Present soft, tenderness and other (surgical dressing in place ); Absent guarding, rebound or rigidity Abdominal tenderness: Present diffuse and mild Extremities Exam Extremities exam: Present full ROM Neurological Exam Neurological exam: Present alert, oriented X3 and CN II-XII intact; Absent motor sensory deficit Psychiatric Psychiatric exam: Present normal affect Skin Skin exam: Absent rash Medical Decision Making Medical Records Medical records reviewed: Yes I reviewed the patient's medical records. Vikram Inquiry Pt receiving controlled substance: No Vital Signs: 01/07/23 00:03 01/07/23 01:30 01/07/23 02:00 Temperature 98 F Temperature Source Oral Pulse Rate 51 L 52 L Pulse Rate [Left] 58 L Respiratory Rate 22 18 20 Blood Pressure 103/56 L 108/68 L Blood Pressure [Right Arm] 116/63 Blood Pressure Mean [Right Arm] 80 Blood Pressure Source [Right Arm] Automatic Cuff Blood Pressure Position [Right Arm] Supine 02 Sat by Pulse Oximetry 100 95 99 Oxygen Delivery Method Room Air Room Air Room Air Lab Data Lab results reviewed: Yes I reviewed the patient's lab results. Lab Results 01/07/23 00:00: WBC 14.0 H, RBC 4.86, Hgb 13.7, Hct 43.2,
[2023-01-07 03:24] LABS: Lipase 92 U/L (23-300)
[2023-01-07 04:01] VITALS: BP 102/77; PULSE 88; RESP 20; TEMP 36.8
== END 2023-01-07 04:28 | disposition home or self-care (01) ==
PROVIDERS: Emergency Provider Emergency Medicine; PCP Pediatrics
DX: K91.89 Other postprocedural complications and disorders of digestive system (principal); G89.18 Other acute postprocedural pain
CPT/HCPCS: 74177; 80053; 83690; 85025; 96360; 96374; 96375; 99285; J2405; Q9967

== ENCOUNTER 2023-01-07 23:57 | Emergency (ER) | payer MEDICAID, SELFPAY ==
[2023-01-08 00:09] VITALS: BP 127/71; PULSE 89; RESP 22; TEMP 36.7; O2SAT 97; BMI 23.7
--- NOTE | 2023-01-08 00:39 | CT_ITS ---
PROCEDURE INFORMATION: Exam: CT Abdomen And Pelvis With Contrast Exam date and time: 01/08/2023 1:07 AM Age: 37 years old Clinical indication: Abdominal pain; Localized; Right lower quadrant (rlq); Prior surgery; Surgery date: 3-7 days post-operative; Surgery type: Hernia repair TECHNIQUE: Imaging protocol: Computed tomography of the abdomen and pelvis with contrast. Radiation optimization: All CT scans at this facility use at least one of these dose optimization techniques: automated exposure control; mA and/or kV adjustment per patient size (includes targeted exams where dose is matched to clinical indication); or iterative reconstruction. Contrast material: ISOVUE; Contrast volume: 75 ml; Contrast route: IV; REPORTING DATA: Count of CT and Cardiac NM exams in prior 12 months: This patient has received 2 known CTs and 0 known cardiac nuclear medicine studies in the 12 months prior to the current study. COMPARISON: CT ABDOMEN PELVIS W CON 01/07/2023 12:24 AM FINDINGS: Lungs: Clear lung bases. Liver: There is periportal edema. Gallbladder and bile ducts: Normal. No calcified stones. No ductal dilation. Pancreas: Normal. No ductal dilation. Spleen: Normal. No splenomegaly. Adrenal glands: Normal. No mass. Kidneys and ureters: 3 mm nonobstructive left sided kidney stone. Stomach and bowel: Mild stool burden. Appendix: Normal appendix. Intraperitoneal space: Postoperative free intra-abdominal gas. A small volume of free pelvic fluid is nonspecific but likely physiologic. Vasculature: Unremarkable. No abdominal aortic aneurysm. Lymph nodes: Unremarkable. No enlarged lymph nodes. Urinary bladder: Unremarkable as visualized. Reproductive: 33 mm collapsing left ovarian physiologic follicle suspected. No follow-up imaging is recommended. Bones/joints: Disc bulge at L4/L5. Mild disc bulge at L5/S1. Soft tissues: Postoperative fluid/edema in the right inguinal canal, not unexpected for hernia repair. IMPRESSION: 1. Normal appendix. 2. 33 mm collapsing left ovarian physiologic follicle suspected. No follow-up imaging is recommended. 3. Mild stool burden. 4. There is periportal edema. This is most commonly seen with IV fluid resuscitation but recommend correlation with liver function tests. 5. A small volume of free pelvic fluid is nonspecific but likely physiologic. 6. Decreasing postoperative free intra-abdominal air.
[2023-01-08 00:44] LABS: Basophils # 0.1 K/mm3 (0-0.2); Basophils % 1.6 % (0.1-2.0); Eosinophils # 0.2 K/mm3 (0.0-0.4); Eosinophils % 1.8 % (0.1-12.0); Hemoglobin 12.4 g/dL (12.2-16.2); Lymphocytes # 2.9 K/mm3 (0.7-4.5); Lymphocytes % 35.4 % (10-50); Mean Corpuscular Hemoglobin 28.1 pg (27.0-31.2); Mean Corpuscular Volume 90.7 fl (81-99); Mean Platelet Volume 8.1 fl (7.4-10.4); Monocytes # 0.4 K/mm3 (0.1-1.0); Monocytes % 4.4 % (1.7-9.3); Neutrophils # 4.7 K/mm3 (1.8-7.8); Neutrophils % 56.7 % (37.0-80.0); Platelet Count 248 K/mm3 (142-424); Red Blood Count 4.41 M/mm3 (4.20-5.40); Red Cell Distribution Width 13.3 % (11.5-17.5); White Blood Count 8.3 K/mm3 (4.8-10.8)
[2023-01-08 00:46] LABS: Chloride 107 mmol/L (98-107); Potassium 3.1 mmoL/L (3.5-5.1); Sodium 140 mmol/L (136-145)
[2023-01-08 00:48] LABS: Amylase 87 U/L (30-110)
[2023-01-08 00:49] LABS: Alanine Aminotransferase 18 U/L (12-78); Albumin Level 4.1 g/dl (3.5-5.0); Albumin/Globulin Ratio 1.5 (1.1-1.8); Alkaline Phosphatase 44 U/L (38-126); Anion Gap 9.1 mEq/L (5-15); Aspartate Amino Transferase 25 U/L (14-36); Bilirubin,Total 0.2 mg/dl (0.2-1.3); Blood Urea Nitrogen 12 mg/dl (7-17); Calcium 8.1 mg/dl (8.4-10.2); Carbon Dioxide 27 mmol/L (22.0-30.0); Creatinine Clearance Estimated 137 mL/min (50-200); Estimated Glomerular Filt Rate 95 ml/min (>60); GFR (African American) 115 ML/MIN (>60); Globulin 2.7 g/dL (1.3-3.2); Glucose 119 mg/dl (74-100); Lipase 59 U/L (23-300); Total Protein,Serum 6.8 g/dl (6.3-8.2)
--- NOTE | 2023-01-08 00:51 | PC.NURSE ---
Rounded on pt. No needs or complaints voiced at this time.
--- NOTE | 2023-01-08 01:01 | PC.NURSE ---
Pt gone to RAD via wheelchair
[2023-01-08 01:08] LABS: C-Reactive Protein 1.5 mg/L (0-4)
--- NOTE | 2023-01-08 01:08 | PC.NURSE ---
Patient requested to have a nurse look at her abdomen to note the swelling. There is an area of swelling on the right side of her naval. The area is soft to touch but patient does express severe pain upon palpitation.
[2023-01-08 01:25] LABS: Erythrocyte Sedimentation Rate 4 mm/hr (0-20)
--- NOTE | 2023-01-08 01:44 | HMH.EDGENADL ---
Discharge Plan Disposition Patient Disposition: Home, Self-Care Chief Complaint: PAIN Prescriptions Prescriptions: No Action levothyroxine 88 mcg tablet 88 mcg PO DAILY tramadol 50 mg tablet 50 mg PO DAILY albuterol sulfate 18 GM HFA aerosol inhaler 1 - 2 puffs IH Q4-6H PRN (Reason: Shortness Of Breath Or Wheezing) Referrals Follow up/Referrals: Bryan Owusu [Primary Care Provider] - See instructions Clinical Impressions Clinical Impression: Postoperative abdominal pain Instructions Patient Instructions: DI for Acute Pain -- Adult Discharge ED Provider: Gallito (ED)Kadeem General Adult HPI General Chief complaint: PAIN Stated complaint: Feels like stomach is filled with snakes Time Seen by Provider: 01/08/23 01:44 Mode of Arrival: Wheelchair Source of Information: Patient and Medical Record Limitations: Physical Limitations Description of Symptoms (Recalled from ER Triage Doc. by RN): Pt seen here last evening for post op pain from inguinal hernia surgery at on Wednesday. Sates she called and they informed her they would page angie EMERY to contact her and she never received call back. She states the toradol is not controlling her pain. Tonight she was coughing and pain has increased. History of Present Illness HPI narrative: after cough has increased abd pain with hx of recent abd surg - seen last pm also - has concerns about pain and some swelling to rt side of abd - no vomiting or fever Onset (ago): hour(s) Location: abdomen Severity: moderate Associated symptoms: denies other symptoms Related Data Home Medications Medication Instructions Recorded Confirmed albuterol sulfate 90 mcg/actuation 1 - 2 puffs inhalation Q4-6H PRN 02/10/19 01/08/23 aerosol inhaler Shortness Of Breath Or Wheezing levothyroxine 88 mcg tablet 88 mcg PO DAILY hypothyroidism 03/02/22 01/08/23 tramadol 50 mg tablet 50 mg PO DAILY Pain 01/08/23 01/08/23 Allergies Allergy/AdvReac Type Severity Reaction Status Date / Time codeine Allergy Verified 03/18/22 13:13 Sulfa (Sulfonamide Allergy Verified 03/18/22 13:13 Antibiotics) [facility] Disclaimer: The information contained in this section may have been updated after the patient was seen, as this information can be updated by other users. Social History Smoking Status: Never smoker second hand exposure: Yes alcohol intake: never substance use type: marijuana current occupational status: unemployed Travel in the last 8 weeks: None household members: family housing: house current occupational exposures/hazards: No caffeine: Yes ROS Obtained: Yes All systems reviewed & no additional complaints except as documented Physical Exam General General appearance: alert Head Head exam: normocephalic Eye Eye exam: Present PERRL and EOMI ENT ENT exam: Present mucous membranes moist Neck Neck exam: Present trachea midline Respiratory Respiratory exam: Absent respiratory distress Cardiovascular Cardiovascular exam: Present regular rate Abdominal Exam Abdominal exam: Present soft, tenderness and other (surg sites clear and some soft tissue swelling rt but no hernia noted by my exam ); Absent guarding, rebound or rigidity Abdominal tenderness: Present RLQ and mild Extremities Exam Extremities exam: Present full ROM Neurological Exam Neurological exam: Present alert, oriented X3 and CN II-XII intact; Absent motor sensory deficit Psychiatric Psychiatric exam: Present normal affect Skin Skin exam: Absent rash Medical Decision Making Medical Records Medical records reviewed: Yes I reviewed the patient's medical records. Vikram Inquiry Pt receiving controlled substance: No Vital Signs: 01/08/23 00:09 Temperature 98.1 F Temperature Source Oral Pulse Rate [Left] 89 Respiratory Rate 22 Blood Pressure [Right Arm] 127/71 Blood Pressure Mean [Right Arm] 89 Blood Pressure Source [Right Arm] Automatic Cuff Blood Press
[2023-01-08 02:04] LABS: Procalcitonin < 0.030 ng/mL (0.0-2.0)
--- NOTE | 2023-01-08 02:15 | PC.NURSE ---
Placed a call to pt's surgeon's office, Dr. Antonella Kang, with [facility]. [phone]. They will return the call.
--- NOTE | 2023-01-08 02:26 | PC.NURSE ---
Dr. Conti s/w on-call surgeon with Dr. Antonella Torres's office
[2023-01-08 03:31] VITALS: BP 120/70; PULSE 88; RESP 18; TEMP 36.6; O2SAT 99
[2023-01-08 03:34] VITALS: BP 132/80; PULSE 84; RESP 20; TEMP 36.9
== END 2023-01-08 03:35 | disposition home or self-care (01) ==
PROVIDERS: Emergency Provider Emergency Medicine; PCP Pediatrics
DX: K91.89 Other postprocedural complications and disorders of digestive system (principal); G89.18 Other acute postprocedural pain
CPT/HCPCS: 74177; 80053; 82150; 83690; 84145; 85025; 85651; 86140; 96360; 96374; 96375; 99285; J0131; Q9967